=== PATIENT | female | born 2000 | race Caucasian/White ===

== ENCOUNTER → 2020-04-07 12:59 | Outpatient (BNVA) | payer MEDICAID, SELFPAY | PROVIDERS: Family Provider Family Medicine; PCP Family Medicine; Visit Provider Obstetrics & Gynecology | DX: O26.899 Other specified pregnancy related conditions, unspecified trimester (principal); Z67.91 Unspecified blood type, Rh negative; O26.843 Uterine size-date discrepancy, third trimester | CPT/HCPCS: 80053; 80307; 81000; 85025; 86803; 87081; 87340 ==

== ENCOUNTER → 2020-04-10 09:33 | Outpatient (BNVA) | payer MEDICAID, SELFPAY | PROVIDERS: Family Provider Family Medicine; PCP Family Medicine; Visit Provider Obstetrics & Gynecology | DX: O26.899 Other specified pregnancy related conditions, unspecified trimester (principal); Z67.91 Unspecified blood type, Rh negative; Z3A.00 Weeks of gestation of pregnancy not specified | CPT/HCPCS: 81000 ==

== ENCOUNTER → 2020-04-17 13:03 | Outpatient (BNVA) | payer MEDICAID, SELFPAY | PROVIDERS: Family Provider Family Medicine; PCP Family Medicine; Visit Provider Obstetrics & Gynecology | DX: O99.820 Streptococcus B carrier state complicating pregnancy (principal); O26.899 Other specified pregnancy related conditions, unspecified trimester; Z67.91 Unspecified blood type, Rh negative; Z3A.00 Weeks of gestation of pregnancy not specified | CPT/HCPCS: 81000 ==

== ENCOUNTER → 2020-04-26 09:52 | Outpatient (BNVA) | payer MEDICAID, SELFPAY | PROVIDERS: Family Provider Family Medicine; PCP Family Medicine; Visit Provider Obstetrics & Gynecology | DX: O99.820 Streptococcus B carrier state complicating pregnancy (principal); O26.899 Other specified pregnancy related conditions, unspecified trimester; Z67.91 Unspecified blood type, Rh negative; Z3A.00 Weeks of gestation of pregnancy not specified | CPT/HCPCS: 81000 ==

== ENCOUNTER 2020-04-27 09:11 | Inpatient (IN) | payer MEDICAID, SELFPAY ==
[2020-04-27] VITALS (77 sets, daily range): BP systolic 0–159; BP diastolic 0–106; PULSE 64–150; RESP 16–18; TEMP 36.6–37.4; O2SAT 89–99; BMI 21.7
[2020-04-27] MEDS: ampicillin 2,000 MG in sodium chloride 0.9% (plus) 50 ML 100 MG IV (10:24)
[2020-04-27] MEDS: lactated ringers 1,000 ML 999 ML IV ×2 (10:24→11:04)
[2020-04-27] MEDS: ondansetron 2 mg/ML SDV 2 mL 4 MG IVP (10:26)
--- NOTE | 2020-04-27 10:41 | ANES.PREANE2 ---
Pre-Anesthetic Assessment Pre-Anesthetic Assessment: Height/Weight: Height 1.68 m Pulse BP 73 135/85 04/27/20 10:32 04/27/20 10:32 Preop Diagnosis: IUP Proposed Procedure: epidural Familial anesthetic complications: None Was Beta Roxana taken within 24 hours: N/A Last intake: Burrito at 0700 Social: Social History: No alcohol and No tobacco Exam: Pre-Anes Outpt Exam: alert, oriented x 3, clear to auscultation bilaterally and regular rate & rhythm Airway: Cervical ROM: WNL MP: 2 Dentition: Full Anesthetic Plan: ASA status: 2 Anesthesia: Regional (specify below) Risk of > 500 ml blood loss (7ml/kg in children): No Meds/Allergies Current Medications: Current Medications Generic Name Dose Route Start Last Admin Trade Name Freq PRN Reason Stop Dose Admin Lactated Ringer's 1,000 mls @ 999 m ls/hr 04/27/20 09:53 04/27/20 10:24 Lactated Ringers IV 999 mls/hr .Q1H1M PRN Administration Per L&D Rescitabennie on Protocol Ondansetron HCl 4 mg 04/27/20 09:53 04/27/20 10:26 Zofran IVP 4 mg Q4H PRN Administration NAUSEA AND VOMITI NG PFSH Anesthesia PFSH: Medical History History of asthma Diagnosed as a child. Controlled with as needed albuterol inhaler. Denies any intubations or hospitalizations. Last had symptoms in 2014. Denies any inhaler use since then No pertinent past medical history Denies diabetes, seizures, hypertension, DVT/PE PMD: None Surgical History No pertinent past surgical history Family History Unknown No pertinent family history Denies any diabetes, hypertension, hypercholesterolemia, stroke, thyroid, heart disease, uterine, colon, ovarian, or breast cancer Social History Smoking and tobacco status: never smoked Alcohol intake: never Data Anesthesia CBC & Chem 7: 04/27/20 09:50 Cardiac Studies: No Data to Display
[2020-04-27 10:43] LABS: Basophils # 0.1 10^3/uL (0.0-0.1); Basophils % 0.7 %; Eosinophils # 0.1 10^3/uL (0.0-0.8); Eosinophils % 0.7 %; Hematocrit 41.2 % (37.0-47.0); Hemoglobin 13.8 g/dL (11.5-15.3); Lymphocytes # 2.1 10^3/uL (1.5-6.5); Lymphocytes % 12.4 %; Mean Corpuscular HGB Conc 33.5 g/dL (30.0-36.0); Mean Corpuscular Hemoglobin 30.5 pg (28.0-34.0); Mean Corpuscular Volume 91.2 fL (81-99); Mean Platelet Volume 11.6 fL (7.4-10.4); Monocytes # 1.2 10^3/uL (0.2-0.9); Monocytes % 7.3 %; Neutrophils # 13.15 10^3/uL (1.8-8.0); Neutrophils % 78.1 %; Nucleated Red Blood Cells % 0 %; Platelet Count 237 10^3/cmm (130-400); Red Blood Count 4.52 10^6/uL (4.1-5.3); Red Cell Distribution Width 13.8 % (12.1-15.1); White Blood Count 16.8 10^3/uL (4.5-13.0)
--- NOTE | 2020-04-27 11:18 | ANES.PROC ---
Anesthesia Procedures Procedure/Date: 04/27/20 Epidural: Time Out Performed: Yes Consents Signed: Procedure Consent Consent: requested by attending/covering physician, from patient, risks and benefits reviewed and patient agrees to proceed Lumbar Level: L3-L4 Epidural position: sitting Epidural procedure: sterile prep of area, 1% lidocaine to numb the area, 18 g needle, negative for paresthesia passed, neg for paresthesia, test dose given, 1.5% xylocaine 1:200k epi (3 ml), 0.2% Ropivacaine bolus ml (5 ml), placed PCEA, no systemic response, sterile dressing applied, L.U.D. no apparent complications and 0.2% Ropiavacaine @ mls/hr (13 ml) Additional Comments: CHARLIE at 5 cm, threaded to 11 cm. palpation of pt's spinous processes revealed them to be off-center and to the left
[2020-04-27] MEDS: lactated ringers 1,000 ML 125 ML (15:34)
[2020-04-27] MEDS: ampicillin 1,000 MG in sodium chloride 0.9% (plus) 50 ML 100 MG IV (15:34)
--- NOTE | 2020-04-27 16:23 | P.PCNOB_ITS ---
Delivery Note: Date of delivery: April 27, 2020 Procedure: spontaneous vaginal delivery Op report anesthesia: Epidural Delivering Physician: Keith Cortes MD Estimated blood loss (mL): 300 Delivery: The patient was noted to be complete and pushing, so was placed in the dorsal lithotomy position, prepped and draped in the usual sterile fashion for a vaginal delivery. Pt. Noted to have epidural anesthesia. At [time] the patient delivered a viable term male infant weighing 3110 g with scores of 8 and 9 at one and five minutes, respectively. The vertex was delivered spontaneously over intact perineum. The patient was asked to push and the head delivered spontaneously in the LOVELY position, over an intact perineum. A nuchal cord was checked and 1 noted, and relieved around head as necessary. The anterior shoulder delivered easily and the posterior shoulder followed. The remainder of the infant was easily delivered and the oropharynx and nasopharynx was bulb suctioned. Terminal meconium noted. The was noted to have spontaneous cry and spontaneous movement of all four extremities. The cord was clamped x 2 and cut and noted to have 2 arteries and one vein. The was passed to the mother's abdomenwhere nursing personnel were in attendance. Cord blood sample was then obtained. The placenta delivered intact spontaneously and the uterus was explored. 20 units of Pitocin was placed in the IV bag to firm the uterus. Examination of the cervix and vaginal vault did not reveal any lac erations. A vaginal pack was then placed. Examination of the perineum showed no lacerations noted. The vaginal pack was then removed. The patient tolerated this procedure well, and recovered in L&D w ith her infant [or note if infant taken to NICU]. All sponge and needle counts were correct. Coding Level of Care Code Acute Truck Driver Instructor for Nando Lovell
[2020-04-27] MEDS: docusate sodium 100 mg Capsule PO (18:42)
[2020-04-27] MEDS: ibuprofen 800 mg tablet PO (21:01)
[2020-04-28] VITALS: BP 133/88; PULSE 107; RESP 18; TEMP 36.8
[2020-04-28 02:00] VITALS: BP 122/84; PULSE 103; RESP 17
[2020-04-28 05:36] LABS: Hematocrit 37.8 % (37.0-47.0); Hemoglobin 12.7 g/dL (11.5-15.3); Mean Corpuscular HGB Conc 33.6 g/dL (30.0-36.0); Mean Corpuscular Hemoglobin 31.1 pg (28.0-34.0); Mean Corpuscular Volume 92.4 fL (81-99); Mean Platelet Volume 11.3 fL (7.4-10.4); Platelet Count 167 10^3/cmm (130-400); Red Blood Count 4.09 10^6/uL (4.1-5.3); Red Cell Distribution Width 14.1 % (12.1-15.1)
[2020-04-28 05:45] VITALS: BP 126/78; PULSE 83; RESP 18
[2020-04-28] MEDS: ibuprofen 800 mg tablet PO (10:40)
[2020-04-28] MEDS: prenatal vitamin Capsule 1 CAP PO (10:40)
[2020-04-28] MEDS: docusate sodium 100 mg Capsule PO (10:40)
[2020-04-28 11:55] VITALS: BP 113/74; PULSE 89; RESP 16; TEMP 36.4
--- NOTE | 2020-04-28 13:03 | P.DS_ITS ---
Discharge Providers [employer] Date of Admission: 04/27/20 09:11 Date of Discharge: 05/01/20 Attending Provider at Admission: Keith Cortes MD Attending Provider at Discharge: Keith Cortes MD Primary Care Provider: Khloe Rodriguez DO Diagnoses at Discharge Discharge Diagnosis (1) Term delivered: Status: Acute Reason for Visit Reason for Visit: Contractions Hospital Course Hospital Course: 19 year old with a LMP of 07/25/2019, EDC of 04/30/2020 based on LMP which places her at 39 5/7 weeks gestation came to labor and delivery at term with iyer complaining of contractions. She was found to be in active labor she was admitted to labor and delivery and she progressed to have a spontaneous vaginal delivery without complications. Overnight postop observation was uneventful. She is afebrile hemodynamically stable. Ambulating well without difficulty. Tolerating diet well. She is undecided which Method of contraception she wants to use at this time. Information Peripartum Data: Infant Delivery Method: Vaginal Physical Exam Narrative: EXAM NARRATIVE: GA; alert and oriented x 3 HEENT: normal Breasts: engorged Nipples - skin intact Lungs; clear to auscultation Heart: regular rhythm, no murmurs. Abd: Appropriately tender. BS+. Uterine fundus below umbilicus. No Fundal Tenderness. Perineum: normal lochia. Extremities: no edema, no cyanosis, no tenderness. Urinary Catheter Management^: Escobar: Cath Placed During This Visit: yes, but has since been removed by the nurse Reason for Continuing Indwelling Catheter: Decision to DC Catheter Urinary Catheter Date of Insertion: 04/27/20 Urinary Catheter Time of Insertion: 11:36 Date Urinary Catheter Removed: 04/27/20 Time Urinary Catheter Discontinued: 13:25 Discharge Data Data Completed and Pending: Labs from last 24 hours 04/28/20 05:20 WBC 17.0 H RBC 4.09 L Hgb 12.7 Hct 37.8 MCV 92.4 MCH 31.1 MCHC 33.6 RDW 14.1 Plt Count 167 MPV 11.3 H Vitals: Last Vital Signs Temp 98.3 F 04/28/20 00:00 Pulse 83 04/28/20 05:45 Resp 18 04/28/20 05:45 BP 126/78 04/28/20 05:45 Pulse Ox 98 04/27/20 19:15 Discharge Plan Discharge Patient Disposition: Home Condition: Stable Prescriptions: New ibuprofen 800 mg tablet 800 mg PO TID PRN (Reason: pain) Qty: 60 RF: 0 Iron (ferrous sulfate) 325 mg (65 mg iron) tablet 325 mg PO BID Qty: 60 RF: 0 acetaminophen 325 mg capsule 325 mg PO Q4H PRN (Reason: fever or pain) Qty: 60 RF: 0 Continued DHA 200 mg capsule PO RF: 0 Discharge Orders: Discharge Order (Routine); Ordered 04/28/20 Ordered By: Keith Cortes Referrals: Keith Cortes MD [Physician] - 06/19/20 9:15 am Discharge Diet: As Directed Discharge Activity: Increase activity as tolerated Patient Instructions: Iron Supplements (By mouth), Acetaminophen (By mouth), Ibuprofen (By mouth), Vitamins (By mouth), Vaginal Delivery (DC), Vaginal Delivery (GEN), OB Discharge Report, OB Vaginal Deliveries - [facility] Discharge Date/Time: 04/28/20 16:30 Discharge Attestations [employer] Time Spent in Discharge Care*: greater than 30 min Specific Discharge Activities: Specific discharge activities: educating patient and educating and/or supporting family/caregiver Time Spent in Smoking Cessation: Time spent discussing smoking cessation with patient: 3 to 10 minutes Coding Level of Care Code Acute Air Gun Operator for Chg Fwd Diagnoses Term delivered O80
[2020-04-28 16:08] VITALS: BP 129/84; PULSE 77; RESP 16; TEMP 36.9; O2SAT 97
== END 2020-04-28 16:30 | disposition home or self-care (01) | DRG 807 ==
LOC: OPOB 09:26 → OBGYN 09:26 → OPOB 10:01 → OBGYN 10:01
PROVIDERS: Admitting Provider Obstetrics & Gynecology; Family Provider Family Medicine; PCP Family Medicine; Visit Provider Obstetrics & Gynecology
DX: O69.81X0 Labor and delivery complicated by cord around neck, without compression, not applicable or unspecified (principal); Z37.0 Single live birth; Z3A.39 39 weeks gestation of pregnancy; O77.0 Labor and delivery complicated by meconium in amniotic fluid
CPT/HCPCS: 12345; 36415; 51702; 59025; 59409; 85025; 85027; 85460; 86850; 86870; 86900; 90384; 96375; 98960; J0290; J2405; J2795

== ENCOUNTER → 2020-06-21 09:14 | Outpatient (BNVA) | payer MEDICAID, SELFPAY | PROVIDERS: Family Provider Family Medicine; PCP Family Medicine; Visit Provider Obstetrics & Gynecology | DX: Z30.9 Encounter for contraceptive management, unspecified (principal) | CPT/HCPCS: 81025 ==

== ENCOUNTER 2021-05-24 16:08 | Emergency (ER) | payer MEDICAID, SELFPAY ==
[2021-05-24 16:21] VITALS: BP 113/78; PULSE 122; RESP 16; TEMP 37.1; O2SAT 98
--- NOTE | 2021-05-24 16:53 | XRR_ITS ---
PROCEDURE INFORMATION: Exam: XR Chest Exam date and time: 05/24/2021 4:53 PM Age: 20 years old Clinical indication: Cough and shortness of breath; Additional info: Cough, SOB TECHNIQUE: Imaging protocol: XR of the chest. Views: 1 view. COMPARISON: No relevant prior studies available. FINDINGS: Lungs: Mild atelectasis in the left base. The lungs are otherwise clear. Pleural spaces: Unremarkable. No pleural effusion. No pneumothorax. Heart/Mediastinum: Unremarkable. No cardiomegaly. Bones/joints: Thoracic scoliosis. XR/XR chest 1V portable [id number] IMPRESSION: No acute findings. Radiation Dose CTDIVOL = (mGy): DLP = (mGy-cm)
--- NOTE | 2021-05-24 19:25 | ED_ITS ---
HPI - COVID General: Chief Complaint: COVID symptoms Stated Complaint: 104.2 FEVER @HOME,BODY ACHES,H/A,THROAT PAIN Time Seen by Provider: 05/24/21 19:16 Source: patient Mode of arrival: ambulatory Limitations: no limitations Triage information: Has fever, cough or shortness of breath . No known COVID + exposure last 14 days History of Present Illness: HPI Narrative: 20-year-old female states that over the last 2 days she been having fevers body aches sore throat and a cough states her temp at home was 101 she is afebrile here. She denies any worsening improving factors she denies any neck pain she is got a mild headache denies any chest or abdominal pain or dysuria. COVID 19 common symptoms: positive fever(s), chills, non-productive cough, body aches and throat pain; negative headache(s), nausea, vomiting or diarrhea COVID 19 other sytmptoms: negative chest pain COVID Results: SARS-CoV-2 Antigen (Rapid) Negative (Negative) 05/24/21 19:25 05/24/21 SARS-CoV-2 RNA (RT-PCR) Pending 05/24/21 12:41 05/24/21 Review of Systems Const: Reports: fever(s), chills and body aches Eyes: Denies: blurry vision or eye discomfort ENMT: Reports: throat pain Card: Denies: chest pain Resp: Reports: non-productive cough GI: Denies: abdominal pain, nausea, vomiting or diarrhea : Denies: dysuria Musc: Denies: neck pain or back pain Skin/Breast: Denies: rash Neuro: Denies: headache(s) Psych: Denies: depression Venu/Lymph: Denies: easy bruising All/Imm: Denies: urticaria PFSH ED PFSH: Medical History (Updated 05/24/21 @ 21:12 by Sis Pope MD) History of asthma Diagnosed as a child. Controlled with as needed albuterol inhaler. Denies any intubations or hospitalizations. Last had symptoms in 2014. Denies any inhaler use since then No pertinent past medical history Denies diabetes, seizures, hypertension, DVT/PE PMD: None Surgical History No pertinent past surgical history Family History Unknown No pertinent family history Denies any diabetes, hypertension, hypercholesterolemia, stroke, thyroid, heart disease, uterine, colon, ovarian, or breast cancer Social History Smoking and tobacco status: never smoked Alcohol intake: never Physical Exam Const: COMMON NORMALS: no acute distress, patient oriented x3 and healthy appearing HENMT: COMMON NORMALS: normocephalic and atraumatic HEAD & SCALP: normocephalic and atraumatic Eye: COMMON NORMALS: Equal, round and reactive pupils present and EOMs intact bilaterally PUPIL: Yes Equal, round and reactive pupils present Neck/C-Spine: COMMON NORMALS: full ROM and supple Chest: COMMONS NORMALS: normal inspection of the chest and normal palpation of entire chest wall Resp: COMMON NORMALS: normal respiratory effort, No retractions, No use of accessory muscles and clear to auscultation bilaterally AUSCULTATION: clear to auscultation bilaterally Cardio: COMMON NORMALS: regular rate, regular rhythm and No murmurs present (Cardio) RATE: regular rate RHYTHM: regular rhythm GI: COMMON NORMALS: Normal to inspection, nondistended, normoactive bowel sounds present, Soft to palpation, non-tender and no masses PALPATION: Yes Soft to palpation Extremity: COMMON NORMALS: normal to inspection and full ROM Neuro: COMMON NORMALS: patient oriented x3, moves all extremities and no focal motor deficits Psych: COMMON NORMALS: mental status grossly normal, Normal thought process present and cooperative THOUGHT PROCESS: Normal thought process present Skin: COMMON NORMALS: no rashes or lesions noted and no wounds GENERAL SKIN EXAM: no rashes or lesions noted Course Vital Signs: Vital signs: Vital Signs Temperature 98.7 F 05/24/21 16:21 Pulse Rate 86 05/24/21 21:15 Respiratory Rate 16 05/24/21 21:15 Blood Pressure 108/78 05/24/21 21:15 Pulse Oximetry 99 05/24/21 21:15 MDM - COVID MDM Narrative: Medical decision making narrative: Patient presents here with acute cystitis likely causing her fever likely has a viral upper respiratory infection as well no signs of meningitis patient's vital signs of improved heart rates improved she stable for discharge will place her on Keflex she is return if worsening she understands agrees to plan. Lab Data: Labs: Lab Results 05/24/21 05/24/21 05/24/21 19:25 19:25 19:25 WBC 17.2 10^3/uL H 10 ^3/uL (4.5-13.0) RBC 4.81 10^6/uL 10^6 /uL (4.1-5.3) Hgb 14.4 g/dL g/dL (11.5-15.3) Hct 42.9 % % (37.0-47.0) MCV 89.2 fl fl (81-99) MCH 29.9 pg pg (28.0-34.0) MCHC 33.6 g/dL g/dL (30.0-36.0) RDW 12.4 % % (12.1-15.1) Plt Count 245 10^3/cmm 10^3 /cmm (130-400) MPV 10.5 fL H fL (7.4-10.4) Neut % (Auto) 73.3 % % Lymph % (Auto) 13.7 % % [place] % (Auto) 11.3 % % Eos % (Auto) 0.5 % % Baso % (Auto) 0.6 % % Neut # (Auto) 12.64 10^3/uL H 1 0^3/uL (1.8-8.0) Lymph # (Auto) 2.4 10^3/uL 10^3/ uL (1.5-6.5) [place] # (Auto) 2.0 10^3/uL H 10^ 3/uL (0.2-0.9) Eos # (Auto) 0.1 10^3/uL 10^3/ uL (0.0-0.8) Baso # (Auto) 0.1 10^3/uL 10^3/ uL (0.0-0.1) Nucleated RBC % (a uto) 0 % % Nucleated RBCs # 0.0 /100WBC /100W BC Sodium 135 mmol/L L mmol /L (136-145) Potassium 3.5 mmol/L mmol/L (3.5-5.1) Chloride 99 mmol/L mmol/L (98-107) Carbon Dioxide 26 mmol/L mmol/L (22-29) Anion Gap 13.5 (5-19) BUN 7 mg/dL mg/dL (6-20) Creatinine 0.7 mg/dL mg/dL (0.5-0.9) GFR Calculation 106.7 mL/min mL/m in (90-130) Glucose 91 mg/dL mg/dL (65-115) Calculated Osmolal ity 278 mOsm/kg L mOs m/kg (285-295) Lactate Calcium 9.0 mg/dL mg/dL (8.5-10.5) Total Bilirubin 0.6 mg/dL mg/dL (0.15-1.2) AST 11 U/L U/L (0-32) ALT 8 U/L U/L (0-33) Alkaline Phosphata se 144 IU/L H IU/L (35-105) Total Protein 8.0 g/dL g/dL (6.6-8.7) Albumin 4.3 g/dL g/dL (3.5-5.2) Globulin 3.7 g/dL g/dL (1.3-4.6) HCG, Qual Negative (Negative) Urine Color Urine Appearance Urine pH Ur Specific Gravit y Urine Protein Urine Glucose (UA) Urine Ketones Urine Blood Urine Nitrate Urine Bilirubin Urine Urobilinogen Ur Leukocyte Carla ase Urine RBC Urine WBC Ur Squamous Epith Cells Amorphous Sediment Urine Bacteria Urine Mucus Influenza Type A A g Influenza Type B A g SARS-CoV-2 Ag (Rap id) Group A Strep Rapi d 05/24/21 05/24/21 05/24/21 19:25 19:25 19:25 WBC RBC Hgb Hct MCV MCH MCHC RDW Plt Count MPV Neut % (Auto) Lymph % (Auto) [place] % (Auto) Eos % (Auto) Baso % (Auto) Neut # (Auto) Lymph # (Auto) [place] # (Auto) Eos # (Auto) Baso # (Auto) Nucleated RBC % (a uto) Nucleated RBCs # Sodium Potassium Chloride Carbon Dioxide Anion Gap BUN Creatinine GFR Calculation Glucose Calculated Osmolal ity Lactate Calcium Total Bilirubin AST ALT Alkaline Phosphata se Total Protein Albumin Globulin HCG, Qual Urine Color Yellow (Yellow) Urine Appearance Hazy A (CLEAR) Urine pH 5 (5-7) Ur Specific Gravit y 1.020 (1.005-1.030) Urine Protein 1+ H (Negative) Urine Glucose (UA) Norm (Normal) Urine Ketones Negative (Negative) Urine Blood Neg (Negative) Urine Nitrate Negative (Negative) Urine Bilirubin 1+ H (Negative) Urine Urobilinogen 1 mg/dL H mg/dL (Negative) Ur Leukocyte Carla ase 2+ H (Negative) Urine RBC Not Reportable Urine WBC 10-15 /hpf H /hpf (0-5) Ur Squamous Epith Cells 40-55 /hpf H /hpf (0-5) Amorphous Sediment Not Reportable Urine Bacteria 3+ /hpf H /hpf (NONE) Urine Mucus 1+ /hpf /hpf Influenza Type A A g Influenza Type B A g SARS-CoV-2 Ag (Rap id) Negative (Negative) Group A Strep Rapi d Negative (Negative) 05/24/21 05/24/21 19:25 19:25 WBC RBC Hgb Hct MCV MCH MCHC RDW Plt Count MPV Neut % (Auto) Lymph % (Auto) [place] % (Auto) Eos % (Auto) Baso % (Auto) Neut # (Auto) Lymph # (Auto) [place] # (Auto) Eos # (Auto) Baso # (Auto) Nucleated RBC % (a uto) Nucleated RBCs # Sodium Potassium Chloride Carbon Dioxide Anion Gap BUN Creatinine GFR Calculation Glucose Calculated Osmolal ity Lactate 0.7 mmol/L mmol/L (0.5-2.2) Calcium Total Bilirubin AST ALT Alkaline Phosphata se Total Protein Albumin Globulin HCG, Qual Urine Color Urine Appearance Urine pH Ur Specific Gravit y Urine Protein Urine Glucose (UA) Urine Ketones Urine Blood Urine Nitrate Urine Bilirubin Urine Urobilinogen Ur Leukocyte Carla ase Urine RBC Urine WBC Ur Squamous Epith Cells Amorphous Sediment Urine Bacteria Urine Mucus Influenza Type A A g Negative (Negative) Influenza Type B A g Negative (Negative) SARS-CoV-2 Ag (Rap id) Group A Strep Rapi d Imaging Data: CXR: Attestation: I personally reviewed and interpreted this imaging study as follows: Radiologist's impression: [address] [place] [address] XRay Report Signed Patient: Farnaz Diaz Unit #: [id number] : 2000 Age/Sex: 20 / F ADM Date: 05/24/21 Loc: ER Room/Bed: Attending Dr: Ordering Provider/Ordering MD: Barbara Jaimes Date of Service: 05/24/21 Procedure(s): XR chest 1V portable [id number] Accession Number(s): [id number] Report Number: [id number] PROCEDURE INFORMATION: Exam: XR Chest Exam date and time: 05/24/2021 4:53 PM Age: 20 years old Clinical indication: Cough and shortness of breath; Additional info: Cough, SOB TECHNIQUE: Imaging protocol: XR of the chest. Views: 1 view. COMPARISON: No relevant prior studies available. FINDINGS: Lungs: Mild atelectasis in the left base. The lungs are otherwise clear. Pleural spaces: Unremarkable. No pleural effusion. No pneumothorax. Heart/Mediastinum: Unremarkable. No cardiomegaly. Bones/joints: Thoracic scoliosis. XR/XR chest 1V portable [id number] IMPRESSION: No acute findings. Radiation Dose CTDIVOL = (mGy): DLP = (mGy-cm) Dictated By: Javier Yadav Signed By: Javier Yadav Signed Date/Time: 05/24/21 174 DD/ 1653 COVID Results: SARS-CoV-2 Antigen (Rapid) Negative (Negative) 05/24/21 19:25 05/24/21 SARS-CoV-2 RNA (RT-PCR) Pending 05/24/21 12:41 05/24/21 Discharge Plan Discharge Patient Disposition: Home Clinical Impression: Acute cystitis Qualifiers: Hematuria presence: without hematuria Qualified Code(s): N30.00 - Acute cystitis without hematuria Condition: Stable Prescriptions: New cephalexin 500 mg capsule 500 mg PO TID 7 Days Qty: 21 RF: 0 No Action Nexplanon 68 mg implant 1 implant subdermal .COMPLEX Qty: 1 RF: 0 ibuprofen 800 mg tablet 800 mg PO TID PRN (Reason: pain) Qty: 60 RF: 0 acetaminophen 325 mg capsule 325 mg PO Q4H PRN (Reason: fever or pain) Qty: 60 RF: 0 Discharge Orders: Discharge ED (Routine); Ordered 05/24/21 Ordered By: Sis Pope Discharge Diet: Advance as tolerated Discharge Activity: Resume usual activity Patient Instructions: Opioid Safety Coding Level of Care Code ED Umbrella Tipper Hand for Chg Fwd Exam Comprehensive
[2021-05-24] MEDS: acetaminophen 325 mg Tablet 650 MG PO (19:39)
[2021-05-24] MEDS: ketorolac 30 mg/mL INJ IVP (19:39)
[2021-05-24] MEDS: sodium chloride 0.9% 1,000 ML 999 ML IV (19:40)
[2021-05-24 19:42] LABS: Basophils # 0.1 10^3/uL (0.0-0.1); Basophils % 0.6 %; Eosinophils # 0.1 10^3/uL (0.0-0.8); Eosinophils % 0.5 %; Hematocrit 42.9 % (37.0-47.0); Hemoglobin 14.4 g/dL (11.5-15.3); Lymphocytes # 2.4 10^3/uL (1.5-6.5); Lymphocytes % 13.7 %; Mean Corpuscular HGB Conc 33.6 g/dL (30.0-36.0); Mean Corpuscular Hemoglobin 29.9 pg (28.0-34.0); Mean Corpuscular Volume 89.2 fl (81-99); Mean Platelet Volume 10.5 fL (7.4-10.4); Monocytes % 11.3 %; Neutrophils # 12.64 10^3/uL (1.8-8.0); Neutrophils % 73.3 %; Nucleated Red Blood Cells % 0 %; Platelet Count 245 10^3/cmm (130-400); Red Blood Count 4.81 10^6/uL (4.1-5.3); Red Cell Distribution Width 12.4 % (12.1-15.1); White Blood Count 17.2 10^3/uL (4.5-13.0)
[2021-05-24 19:44] VITALS: BP 99/71; PULSE 96; RESP 16; O2SAT 100
[2021-05-24 19:46] LABS: HCG Qualitative Urine. Negative (Negative)
[2021-05-24 19:54] LABS: Charge for UA Resulting for Rev
[2021-05-24 20:02] LABS: Alanine Aminotransferase 8 U/L (0-33); Albumin Level 4.3 g/dL (3.5-5.2); Alkaline Phosphatase 144 IU/L (35-105); Anion Gap 13.5 (5-19); Aspartate Amino Transferase 11 U/L (0-32); Blood Urea Nitrogen 7 mg/dL (6-20); Carbon Dioxide 26 mmol/L (22-29); Chloride 99 mmol/L (98-107); Globulin 3.7 g/dL (1.3-4.6); Glomerular Filtration Rate 106.7 mL/min (90-130); Glucose 91 mg/dL (65-115); Osmolality Calculated 278 mOsm/kg (285-295); Potassium 3.5 mmol/L (3.5-5.1); Sodium 135 mmol/L (136-145); Total Bilirubin 0.6 mg/dL (0.15-1.2)
[2021-05-24 20:03] LABS: Urine Appearance Hazy (CLEAR); Urine Color Yellow (Yellow); pH Urine 5 (5-7)
[2021-05-24 20:04] LABS: Add Urine Microscopic? YES; Bilirubin Urine 1+ (Negative); Blood Urine Neg (Negative); Glucose Urine UA Norm (Normal); Ketones Urine Negative (Negative); Leukocyte Esterase Urine 2+ (Negative); Nitrate Urine Negative (Negative); Protein Urine 1+ (Negative); Urobilinogen Urine 1 mg/dL (Negative)
[2021-05-24 20:05] LABS: Bacteria Urine 3+ /hpf; Mucus Urine 1+ /hpf; Squamous Epithelial Cell Urine 40-55 /hpf (0-5)
[2021-05-24 20:07] LABS: Add Urine Culture? No
[2021-05-24 20:14] LABS: Rapid Strep A Test Negative (Negative); SARS Covid-2 Antigen Negative (Negative)
[2021-05-24 20:15] LABS: Influenza A by IFA Negative (Negative); Influenza B by IFA Negative (Negative)
[2021-05-24] MEDS: cefTRIAXone 1,000 MG in sodium chloride 0.9% (plus) 50 ML 100 MG IV (20:28)
[2021-05-24 20:38] LABS: Lactate (Lactic Acid level) 0.7 mmol/L (0.5-2.2)
[2021-05-24 21:15] VITALS: BP 108/78; PULSE 86; RESP 16; O2SAT 99
== END 2021-05-24 21:18 | disposition home or self-care (01) ==
PROVIDERS: Physician Assistant; Emergency Provider Emergency Medicine
DX: N30.00 Acute cystitis without hematuria (principal)
CPT/HCPCS: 71045; 80053; 81001; 81003; 81025; 83605; 85025; 87081; 87400; 87426; 87635; 87804; 87880; 96365; 96375; 99284; J0696; J1885; J7030

== ENCOUNTER 2022-05-24 11:08 | Outpatient (CLI) | payer MEDICAID, SELFPAY ==
--- NOTE | 2022-05-24 11:48 | XR_ITS ---
WS: [id number] PA chest with left rib detail, 4 views, 05/24/2022 Clinical Data: RIB PAIN ON LEFT SIDE Comparison: Portable chest, 05/24/2021. Findings: The chest shows no acute cardiopulmonary disease. There is a dextroscoliosis of the lower thoracic sp ine. The ribs show no fractures or dislocations. No left pneumothorax or subcutaneous emphysema is se en. XR/XR ribs LT 2V* [id number] Impression: Negative chest with left rib detail.
== END 2022-05-24 11:09 | disposition home or self-care (01) ==
LOC: RAD 11:11
PROVIDERS: Visit Provider Nurse Practitioner Family
DX: R07.81 Pleurodynia (principal)
CPT/HCPCS: 71100

== ENCOUNTER 2022-06-03 07:59 | Outpatient (CLI) | payer MEDICAID, SELFPAY ==
--- NOTE | 2022-06-03 08:19 | US_ITS ---
WS: [email or web address] BILATERAL BREAST, complete. HISTORY: BREAST TENDERNESS, 21-year-old. COMPARISON: None available. TECHNIQUE: 2-D and Doppler. RIGHT breast: Hypoechoic slightly lobulated mass in the RIGHT breast at 10:00 2 cm from nipple measur es 2.0 x 1.5 x 1.0 cm. Mild peripheral increased vascularity. This is most likely and most typical fo r a benign fibroadenoma. No additional abnormalities within the RIGHT breast. LEFT breast: Small benign lymph node at 2:00, 4 cm from the nipple. No masses. US/US breast BI complete [id number] IMPRESSION: BI-RADS: 4-Suspicious Finding-Biopsy Should Be Considered FOLLOW-UP: Biopsy Recommended Biopsy recommended of the RIGHT breast mass at 10:00. This is most likely a jose ign fibroadenoma.
== END 2022-06-03 08:00 | disposition home or self-care (01) ==
LOC: RAD 08:01
PROVIDERS: PCP Family Medicine; Visit Provider Family Medicine
DX: N63.11 Unspecified lump in the right breast, upper outer quadrant (principal)
CPT/HCPCS: 76641

== ENCOUNTER 2022-06-11 07:01 | Outpatient (CLI) | payer MEDICAID, SELFPAY ==
--- NOTE | 2022-06-11 07:25 | US_ITS ---
WS: [id number] Complete ABDOMINAL ULTRASOUND HISTORY: ABD PAIN COMPARISON: 12/21/2010 Liver: 11.8 cm in length. Liver is normal size and echogenicity with no mass or intrahepatic dilatati on. Portal Vein: Normal hepatopetal flow with monophasic waveform. Gallbladder: Normally distended with no gallstones, wall thickening or pericholecystic fluid. Gallbladder wall thickness: 0.1 cm. Pancreas: Normal size and echogenicity. CBD: 0.4 cm. Right kidney: 9.4 cm x 3.8 cm x 3.2 cm. No mass, cortical thickening or hydronephrosis. Left kidney: 8.9 cm x 4.3 cm x 3.7 cm. No mass, cortical thickening or hydronephrosis. Spleen: Normal size and echogenicity. Abdominal aorta and IVC are within normal limits. No ascites. US/US abdomen complete* [id number] IMPRESSION: Normal complete abdomen ultrasound.
== END 2022-06-11 07:02 | disposition home or self-care (01) ==
PROVIDERS: PCP Family Medicine; Visit Provider Nurse Practitioner Family
DX: R10.9 Unspecified abdominal pain (principal)
CPT/HCPCS: 76700

== ENCOUNTER 2022-07-18 11:28 | Outpatient (CLI) | payer MEDICAID, SELFPAY ==
--- NOTE | 2022-07-18 11:38 | US_ITS ---
WS: [id number] ULTRASOUND-GUIDED RIGHT BREAST BIOPSY HISTORY: MASS OF UPPER INNER QUADRANT OF R BREAST COMPARISON: Ultrasound 06/03/2022 Procedure, risks and complications are explained to the patient. Medications are reviewed. Consent is obtained. The mass in the RIGHT breast is localized with ultrasound. Mass localizes to 10:00, 2 cm from the nip ple. Skin is cleansed with ChloraPrep and anesthetized with 1% buffered lidocaine. Small dermatome is made. Under sterile conditions mass is biopsied with a 14-gauge Achieve needle. Multiple core biopsi es are performed. Material placed in formalin and sent to pathology for review. No complications enco untered. Breast tissue marker (Bard ultrasound enhanced ribbon): Single. Patient left the radiology suite with no complications. Patient is instructed to return to [facility] or [facility] with any concerns. US/[place] [id number] IMPRESSION: 1. Uncomplicated core needle biopsy RIGHT breast mass at 10:00. PATHOLOGY: Fibroadenoma. No malignancy. RECOMMENDATION: Follow-up with primary care. Consider surgical excision.
== END 2022-07-18 11:29 | disposition home or self-care (01) ==
LOC: RAD 11:30
PROVIDERS: PCP Family Medicine; Visit Provider Nurse Practitioner Family
DX: N63.12 Unspecified lump in the right breast, upper inner quadrant (principal); D24.1 Benign neoplasm of right breast
CPT/HCPCS: 19083; 88305

== ENCOUNTER → 2022-09-11 16:10 | Outpatient (BNVA) | payer MEDICAID, SELFPAY | PROVIDERS: PCP Family Medicine; Visit Provider Nurse Practitioner Women's Health | DX: N89.8 Other specified noninflammatory disorders of vagina (principal) | CPT/HCPCS: 87491; 87591; 87661; 88175 ==

== ENCOUNTER → 2022-12-17 16:43 | Outpatient (BNVA) | payer MEDICAID, SELFPAY | PROVIDERS: PCP Family Medicine; Visit Provider Registered Nurse Neonatal Intensive Care | DX: R50.9 Fever, unspecified (principal); J03.80 Acute tonsillitis due to other specified organisms; B96.89 Other specified bacterial agents as the cause of diseases classified elsewhere | CPT/HCPCS: 87400 ==

== ENCOUNTER 2022-12-24 12:36 | Emergency (ER) | payer MEDICAID, SELFPAY ==
[2022-12-24 13:04] VITALS: BP 112/72; PULSE 80; RESP 14; TEMP 36.9; O2SAT 98; BMI 25.8
--- NOTE | 2022-12-24 13:23 | W.ED.EXTPRO ---
HPI - Extremity Problem General: Chief complaint: Extremity Injury, Upper Stated complaint: right upper arm and bilateral wrist pain Time Seen by Provider: 12/24/22 13:11 Source: patient Mode of arrival: ambulatory Limitations: no limitations History of Present Illness: Patient is a 22-year-old female presents to ED today with complaint of bilateral wrist pain and right shoulder pain. Patient states pain began yesterday while she was playing video games. She has not noticed any redness, warmth, or swelling to the joints. Denies other systemic symptoms. Of note it looks like patient was recently treated for a bacterial tonsillitis. No strep was obtained. She is currently taking amoxicillin. Patient has not had any fevers. MD Complaint: joint pain Onset (ago): hour(s) Pain Consistency: constant Location: left, right and upper extremity Radiation: none Relieving factors: nothing Exacerbating factors: range of motion Associated symptoms: Reports other (being treated for tonsillitis-states this is improving ); Deny chest pain, fever(s) or rash Review of Systems Const: Denies: fever(s), chills, body aches, fatigue or malaise ENMT: Denies: throat pain, odynophagia, ear or mastoid pain, nasal discharge, nasal congestion, post nasal drip or sinus pain Card: Denies: chest pain Resp: Denies: dyspnea GI: Denies: nausea or vomiting Musc: Reports: joint pain; Denies: neck pain, back pain, extremity pain, extremity swelling, joint swelling, joint redness, joint warmth or limited range of motion Skin/Breast: Denies: rash Neuro: Denies: headache(s), numbness in extremities, weakness in extremities or sensory changes PFS ED PFSH: Medical History History of asthma Diagnosed as a child. Controlled with as needed albuterol inhaler. Denies any intubations or hospitalizations. Last had symptoms in 2014. Denies any inhaler use since then No pertinent past medical history Denies diabetes, seizures, hypertension, DVT/PE PMD: None Surgical History No pertinent past surgical history Family History Unknown No pertinent family history Denies any diabetes, hypertension, hypercholesterolemia, stroke, thyroid, heart disease, uterine, colon, ovarian, or breast cancer Social History Smoking and tobacco status: never smoked Alcohol intake: never Substance/Drug Use: never Physical Exam Const: COMMON NORMALS: no acute distress, average body habitus, patient oriented x3, no limitations, healthy appearing, alert and well nourished GENERAL APPEARANCE: cooperative ORIENTATION/CONSCIOUSNESS: Yes awake, Yes oriented to person, Yes oriented to place and Yes oriented to time HENMT: FACE & SINUS: normal facial exam THROAT: posterior oropharynx normal, tonsils normal and uvula midline Neck/C-Spine: COMMON NORMALS: no lymphadenopathy and no meningeal signs Resp: COMMON NORMALS: normal respiratory effort and clear to auscultation bilaterally AUSCULTATION: clear to auscultation bilaterally Cardio: COMMON NORMALS: regular rate and regular rhythm RATE: regular rate RHYTHM: regular rhythm Extremity: COMMON NORMALS: normal to inspection, full ROM, no joint enlargement and no calf tenderness NARRATIVE EXTREMITY EXAM: patient is using upper extremities normally as she is chasing/lifting her toddler that accompanies her; I do not appreciate any swelling, redness, warmth, decreased range of motion to any portion of her extremities GENERAL: Yes normal exam except as noted Neuro: VIRY COMA SCALE: document GCS findings Viry coma scale eye opening: Spontaneous [place] coma scale verbal response: Orientated Viry coma scale motor response: Obey commands Viry coma scale total score: 15 COMMON NORMALS: patient oriented x3, moves all extremities, no focal motor deficits and no sensory deficits noted SENSORIUM/ORIENTATION: Yes alert, Yes oriented to person, Yes oriented to place and Yes oriented to time MENINGEAL SIGNS: Yes no meningeal signs Skin: COMMON NORMALS: no rashes or lesions noted GENERAL SKIN EXAM: no rashes or lesions noted Course Vital Signs: Vital signs: Vital Signs Temperature 98.5 F 12/24/22 13:04 Pulse Rate 80 12/24/22 13:04 Respiratory Rate 14 12/24/22 13:04 Blood Pressure 112/72 12/24/22 13:04 Pulse Oximetry 98 12/24/22 13:04 Oxygen Delivery Me thod Room Air 12/24/22 13:04 MDM - Extremity (Nontraumatic) Medical Decision Making Certainly symptoms could be secondary to over usage as symptoms started while she was playing video games. Other DDx includes tendinitis as well as a poststreptococcal arthritis seeing how she was recently treated for tonsillitis-no strep was obtained but she is currently on amoxicillin. Discussed how treatment is NSAIDs at this time. If symptoms do not improve she can follow-up with primary care. Return ED precautions given. Discharge Plan Discharge Patient Disposition: Home Clinical Impression: Joint pain Qualifiers: Joint pain location: wrist Laterality: bilateral Qualified Code(s): M25.531 - Pain in right wrist Condition: Stable Prescriptions: No Action amoxicillin 500 mg tablet 500 mg PO BID 10 Days Qty: 20 0RF Nexplanon 68 mg implant 1 implant subdermal .COMPLEX Qty: 1 0RF Rx Instructions: 1 implant subdermal Placed 06/21/2020; acetaminophen 325 mg capsule 325 mg PO Q4H PRN (Reason: fever or pain) Qty: 60 0RF Discharge Orders: Discharge ED (Routine); Ordered 12/24/22 Ordered By: Barbara Jaimes Referrals: Ramila Hall MD [Primary Care Provider] - Activity Restrictions/Additional Instructions: As discussed I would like you to start taking either 600 mg of ibuprofen every 6-8 hours or 500 mg of naproxen every 12 hours for your joint pain. You may also try ice and heat. Continue your current antibiotic course until finished. If joint pain persist past 1 to 2 weeks please follow-up with your primary care provider. He may return to the emergency department for any red, swollen, warm to the touch joints, fevers, or any other concerns you may have. I hope you begin to feel better soon. Coding Level of Care Code ED Nylon Machine Operator for Nando Lovell
== END 2022-12-24 13:48 | disposition home or self-care (01) ==
PROVIDERS: Emergency Provider Physician Assistant; PCP Family Medicine
DX: M25.532 Pain in left wrist (principal); M25.531 Pain in right wrist
CPT/HCPCS: 99284

== ENCOUNTER 2023-01-02 21:29 | Emergency (ER) | payer MEDICAID, SELFPAY ==
[2023-01-02 21:34] VITALS: BP 116/80; PULSE 85; RESP 16; TEMP 36.8; O2SAT 99
--- NOTE | 2023-01-02 22:26 | W.ED.EXTPRO ---
HPI - Extremity Problem General: Chief complaint: Extremity Problem,Nontraumatic Stated complaint: wrest pain Time Seen by Provider: 01/02/23 21:57 History of Present Illness: PatientPatient reports that she has had bilateral upper extremity pain and wrist pain x1 week. She does not know of any injury that is causes she just woke up 1 morning and was hurting. She does not work she does not have any repetitive neck activities or hobbies. She does not know of any family history of rheumatoid arthritis. She denies any fever, chills, nausea, vomiting. She denies stating that she has the Implanon in her arm for some time now. She denies any known tick bites. She reports movement makes the pain worse. Associated symptoms: Deny chest pain or fever(s) Review of Systems Const: Denies: fever(s), chills or body aches Eyes: Denies: change in vision or blurry vision ENMT: Denies: throat pain Card: Denies: chest pain, palpitations, irregular heart rhythm, lightheadedness or syncope Resp: Denies: dyspnea, productive cough or non-productive cough GI: Denies: abdominal pain, nausea or vomiting : Denies: flank pain, difficulty voiding, dysuria, urinary frequency, urinary urgency or urinary hesitancy Musc: Reports: extremity pain, joint pain and limited range of motion Neuro: Denies: headache(s), numbness in extremities or weakness in extremities PFS ED PFSH: Medical History (Updated 01/02/23 @ 23:54 by CHICA Verdin) History of asthma Diagnosed as a child. Controlled with as needed albuterol inhaler. Denies any intubations or hospitalizations. Last had symptoms in 2014. Denies any inhaler use since then No pertinent past medical history Denies diabetes, seizures, hypertension, DVT/PE PMD: None Surgical History No pertinent past surgical history Family History Unknown No pertinent family history Denies any diabetes, hypertension, hypercholesterolemia, stroke, thyroid, heart disease, uterine, colon, ovarian, or breast cancer Social History Smoking and tobacco status: never smoked Alcohol intake: never Substance/Drug Use: never Physical Exam Const: COMMON NORMALS: no acute distress, patient oriented x3 and alert Neck/C-Spine: COMMON NORMALS: no JVD Resp: COMMON NORMALS: normal respiratory effort, No use of accessory muscles and clear to auscultation bilaterally AUSCULTATION: clear to auscultation bilaterally Cardio: COMMON NORMALS: no JVD, regular rate, regular rhythm, S1 normal heart sound present and S2 normal heart sound present RATE: regular rate RHYTHM: regular rhythm HEART SOUNDS: S1 normal heart sound present and S2 normal heart sound present Extremity: NARRATIVE EXTREMITY EXAM: Patient with guarded movements of upper extremities. She cringes when I touch her forearms and her wrist and her shoulders bilateral. No obvious bony deformity or soft tissue deformity appreciated. Patient does have full range of motion although grimaces with any movement of the wrist worse on the left. CSM within normal limits to distal fingers bilateral hands. No significant joint swelling or erythema appreciated. Neuro: COMMON NORMALS: patient oriented x3 SENSORIUM/ORIENTATION: Yes alert Course Vital Signs: Vital signs: Vital Signs Temperature 98.2 F 01/02/23 21:34 Pulse Rate 85 01/03/23 00:03 Respiratory Rate 13 01/03/23 00:03 Blood Pressure 116/80 01/02/23 21:34 Pulse Oximetry 98 01/03/23 00:03 Oxygen Delivery Me thod Room Air 01/02/23 21:34 MDM - Extremity (Nontraumatic) Medical Decision Making Consider inflammatory response, tickborne illness, infection, arthritis, strain Patient denies any recent tick bites, white blood cell count is within normal limits, lactic acid within normal limits. No significant electrolyte abnormalities. Toradol injection given x1 dose in here tonight. Patient reports improvement in pain with Toradol injection. Have patient follow-up with primary care provider for continued evaluation and management. Patient discharged home in stable condition. Return to the ER as needed for new or worsening symptoms Lab Data 01/02/23 23:14 01/02/23 23:14 Laboratory Results WBC 9.2 10^3/uL (4.0-10.0) 01/02/23 23:14 RBC 4.08 10^6/uL (4.1-5.3) L 01/02/23 23:14 Hgb 12.2 g/dL (11.5-15.3) 01/02/23 23:14 Hct 37.1 % (37.0-47.0) 01/02/23 23:14 MCV 90.9 fl (81-99) 01/02/23 23:14 MCH 29.9 pg (28.0-34.0) 01/02/23 23:14 MCHC 32.9 g/dL (30.0-36.0) 01/02/23 23:14 RDW 12.4 % (12.1-15.1) 01/02/23 23:14 Plt Count 366 10^3/cmm (130-400) 01/02/23 23:14 MPV 10.1 fL (7.4-10.4) 01/02/23 23:14 Neut % (Auto) 50.1 % 01/02/23 23:14 Lymph % (Auto) 38.9 % 01/02/23 23:14 Cobb % (Auto) 7.9 % 01/02/23 23:14 Eos % (Auto) 1.9 % 01/02/23 23:14 Baso % (Auto) 1.0 % 01/02/23 23:14 Neut # (Auto) 4.60 10^3/uL (1.8-7.7) 01/02/23 23:14 Lymph # (Auto) 3.6 10^3/uL (0.8-4.8) 01/02/23 23:14 Cobb # (Auto) 0.7 10^3/uL (0.2-0.9) 01/02/23 23:14 Eos # (Auto) 0.2 10^3/uL (0.0-0.8) 01/02/23 23:14 Baso # (Auto) 0.1 10^3/uL (0.0-0.1) 01/02/23 23:14 Nucleated RBC % (auto) 0 % 01/02/23 23:14 Nucleated RBCs # 0.0 /100WBC 01/02/23 23:14 Sodium 138 mmol/L (136-145) 01/02/23 23:14 Potassium 3.8 mmol/L (3.5-5.1) 01/02/23 23:14 Chloride 102 mmol/L (98-107) 01/02/23 23:14 Carbon Dioxide 26 mmol/L (22-29) 01/02/23 23:14 Anion Gap 13.8 (5-19) 01/02/23 23:14 BUN 12 mg/dL (6-20) 01/02/23 23:14 Creatinine 0.7 mg/dL (0.5-0.9) 01/02/23 23:14 GFR Calculation 104.6 mL/min (90-130) 01/02/23 23:14 Glucose 90 mg/dL (65-115) 01/02/23 23:14 Calculated Osmolality 285 mOsm/kg (285-295) 01/02/23 23:14 Lactic Acid 0.9 mmol/L (0.5-2.2) 01/02/23 23:14 Calcium 9.3 mg/dL (8.5-10.5) 01/02/23 23:14 Total Bilirubin 0.2 mg/dL (0.15-1.2) 01/02/23 23:14 AST 12 U/L (0-32) 01/02/23 23:14 ALT 10 U/L (0-33) 01/02/23 23:14 Alkaline Phosphatase 107 U/L (35-105) H 01/02/23 23:14 Total Protein 7.9 g/dL (6.6-8.7) 01/02/23 23:14 Albumin 4.0 g/dL (3.5-5.2) 01/02/23 23:14 Globulin 3.9 g/dL (1.3-4.6) 01/02/23 23:14 Discharge Plan Discharge Patient Disposition: Home Clinical Impression: Upper extremity pain Qualifiers: Laterality: bilateral Qualified Code(s): M79.601 - Pain in right arm Condition: Stable Prescriptions: No Action amoxicillin 500 mg tablet 500 mg PO BID 10 Days Qty: 20 0RF Nexplanon 68 mg implant 1 implant subdermal .COMPLEX Qty: 1 0RF Rx Instructions: 1 implant subdermal Placed 06/21/2020; acetaminophen 325 mg capsule 325 mg PO Q4H PRN (Reason: fever or pain) Qty: 60 0RF Discharge Orders: Discharge ED (Routine); Ordered 01/02/23 Ordered By: Licha Ryan Discharge Diet: Usual diet Discharge Activity: Increase activity as tolerated Activity Restrictions/Additional Instructions: Your labs did not show any evidence of acute infection or inflammatory process today. I recommend continued follow-up with primary care provider for ongoing evaluation and management of your upper extremity pain. Return to the ER as needed for new or worsening symptoms Coding Level of Care Code ED Automotive Porter for Nando Lovell
[2023-01-02] MEDS: ketorolac 60 mg/2 mL INJ IM (23:19)
[2023-01-02 23:34] LABS: Basophils # 0.1 10^3/uL (0.0-0.1); Eosinophils # 0.2 10^3/uL (0.0-0.8); Eosinophils % 1.9 %; Hematocrit 37.1 % (37.0-47.0); Hemoglobin 12.2 g/dL (11.5-15.3); Lymphocytes # 3.6 10^3/uL (0.8-4.8); Lymphocytes % 38.9 %; Mean Corpuscular HGB Conc 32.9 g/dL (30.0-36.0); Mean Corpuscular Hemoglobin 29.9 pg (28.0-34.0); Mean Corpuscular Volume 90.9 fl (81-99); Mean Platelet Volume 10.1 fL (7.4-10.4); Monocytes # 0.7 10^3/uL (0.2-0.9); Monocytes % 7.9 %; Neutrophils % 50.1 %; Nucleated Red Blood Cells % 0 %; Platelet Count 366 10^3/cmm (130-400); Red Blood Count 4.08 10^6/uL (4.1-5.3); Red Cell Distribution Width 12.4 % (12.1-15.1); White Blood Count 9.2 10^3/uL (4.0-10.0)
[2023-01-02 23:43] LABS: Alanine Aminotransferase 10 U/L (0-33); Alkaline Phosphatase 107 U/L (35-105); Anion Gap 13.8 (5-19); Aspartate Amino Transferase 12 U/L (0-32); Blood Urea Nitrogen 12 mg/dL (6-20); Calcium 9.3 mg/dL (8.5-10.5); Carbon Dioxide 26 mmol/L (22-29); Chloride 102 mmol/L (98-107); Globulin 3.9 g/dL (1.3-4.6); Glomerular Filtration Rate 104.6 mL/min (90-130); Glucose 90 mg/dL (65-115); Osmolality Calculated 285 mOsm/kg (285-295); Potassium 3.8 mmol/L (3.5-5.1); Sodium 138 mmol/L (136-145); Total Bilirubin 0.2 mg/dL (0.15-1.2); Total Protein 7.9 g/dL (6.6-8.7)
[2023-01-02 23:44] LABS: Lactic Sepsis W/Reflex 0.9 mmol/L (0.5-2.2)
[2023-01-03 00:03] VITALS: PULSE 85; RESP 13; O2SAT 98
--- NOTE | 2023-01-03 13:14 | DCPLANNER ---
TCM called patient due to no primary care physician - no answer at this time.
== END 2023-01-03 00:04 | disposition home or self-care (01) ==
PROVIDERS: Emergency Provider Nurse Practitioner Family
DX: M79.601 Pain in right arm (principal)
CPT/HCPCS: 80053; 83605; 85025; 96372; 99284; J1885

== ENCOUNTER → 2023-01-06 18:07 | Outpatient (BNVA) | payer MEDICAID, SELFPAY | PROVIDERS: Visit Provider Emergency Medicine | DX: J02.9 Acute pharyngitis, unspecified (principal); R52 Pain, unspecified | CPT/HCPCS: 87071; 87880 ==

== ENCOUNTER 2023-03-05 11:33 | Emergency (ER) | payer MEDICAID, SELFPAY ==
[2023-03-05 12:03] VITALS: BP 112/73; PULSE 84; RESP 16; TEMP 36.7; O2SAT 100; BMI 22.6
--- NOTE | 2023-03-05 13:05 | PC.PHAR ---
[facility]ed [facility] at 1:[facility] pm for med list
--- NOTE | 2023-03-05 13:59 | ED_ITS ---
HPI - Skin/Abscess/Foreign Bdy General: Chief complaint: Allergic Reaction Stated complaint: allergic reaction Time Seen by Provider: 03/05/23 12:46 Source: patient Mode of arrival: ambulatory Limitations: no limitations History of Present Illness: Patient is a 22-year-old female who presents to ED today with a concern of poison alcides. She states she has multiple spots to her bilateral upper and lower extremity that are pruritic and feels like poison alcides she has had previously. She is requesting a steroid shot. She has been outside working in the [employer]. MD complaint: rash Onset (ago): day(s) Tetanus up to date: yes Location: generalized Severity: mild Quality: pruritic Relieving factors: none Exacerbating factors: none Context: none Associated symptoms: Reports no associated symptoms; Deny chills or fever(s) Treatments prior to arrival: none Review of Systems Const: Denies: fever(s), chills, body aches, fatigue or malaise Eyes: Denies: change in vision, blurry vision or eye discomfort ENMT: Denies: throat pain or odynophagia Card: Denies: chest pain Resp: Denies: dyspnea GI: Denies: abdominal pain Musc: Denies: neck pain, back pain, extremity pain or joint pain Skin/Breast: Reports: rash and pruritus Neuro: Denies: headache(s), numbness in extremities, weakness in extremities, sensory changes or dizziness PFS ED PFSH: Medical History History of asthma Diagnosed as a child. Controlled with as needed albuterol inhaler. Denies any intubations or hospitalizations. Last had symptoms in 2014. Denies any inhaler use since then No pertinent past medical history Denies diabetes, seizures, hypertension, DVT/PE PMD: None Surgical History No pertinent past surgical history Family History Unknown No pertinent family history Denies any diabetes, hypertension, hypercholesterolemia, stroke, thyroid, heart disease, uterine, colon, ovarian, or breast cancer Social History Smoking and tobacco status: never smoked Alcohol intake: never Substance/Drug Use: never Physical Exam Const: COMMON NORMALS: no acute distress, average body habitus, patient oriented x3, no limitations, healthy appearing, alert and well nourished Extremity: COMMON NORMALS: normal to inspection GENERAL: Yes normal exam except as noted Neuro: COMMON NORMALS: patient oriented x3 SENSORIUM/ORIENTATION: Yes alert Skin: NARRATIVE SKIN EXAM: Patient has multiple 1 to 2 mm erythematous papules/vesicles to bilateral upper and lower extremities consistent with insect bites Course Vital Signs: Vital signs: Vital Signs Temperature 98.1 F 03/05/23 12:03 Pulse Rate 84 03/05/23 12:03 Respiratory Rate 16 03/05/23 12:03 Blood Pressure 112/73 03/05/23 12:03 Pulse Oximetry 100 03/05/23 12:03 Oxygen Delivery Me thod Room Air 03/05/23 12:03 MDM - Skin/Abscess/Foreign Bdy Medicial Decision Making Patient's lesions are consistent with insect bites. She seems to be offended that I do not share her concern for contact/plant dermatitis. Ultimately we discussed how treatment would be the same in regards to oral and topical Benadryl to help with the itching and topical hydrocortisone cream. Patient is stable for discharge. Discharge Plan Discharge Patient Disposition: Home Clinical Impression: Multiple insect bites Condition: Stable Prescriptions: No Action ibuprofen 800 mg tablet 800 mg PO Q8H PRN (Reason: pain) Qty: 60 0RF Discharge Orders: Discharge ED (Routine); Ordered 03/05/23 Ordered By: Barbara Jaimes Activity Restrictions/Additional Instructions: As we discussed I believe your skin lesions most likely are consistent with insect bites and not a contact dermatitis from plants. Ultimately treatment is essentially the same with [id number] antihistamines such as Benadryl/steroids. These are available in oral and topical formulations. You may also apply topical hydrocortisone cream. Coding Level of Care Code ED Manager Civil for Nando Lovell
[2023-03-05] MEDS: hydrocortisone 100 mg/2 mL SDV 50 MG IM (14:21)
--- NOTE | 2023-03-07 12:16 | DCPLANNER ---
delicatessen store manager called patient due to no primary care physician - no answer at this time.
== END 2023-03-05 14:26 | disposition home or self-care (01) ==
PROVIDERS: Emergency Provider Physician Assistant
DX: T14.8XXA Other injury of unspecified body region, initial encounter (principal); W57.XXXA Bitten or stung by nonvenomous insect and other nonvenomous arthropods, initial encounter
CPT/HCPCS: 96372; 99284; J1720

== ENCOUNTER → 2023-07-03 15:37 | Outpatient (BNVA) | payer MEDICAID, SELFPAY | PROVIDERS: Visit Provider Nurse Practitioner Women's Health | DX: Z30.9 Encounter for contraceptive management, unspecified (principal) | CPT/HCPCS: 81025 ==

== ENCOUNTER 2025-02-17 10:00 | Outpatient (CLI) | payer MEDICAID, SELFPAY ==
--- NOTE | 2025-02-17 10:07 | US_ITS ---
WS: [id number] ULTRASOUND BREAST BILATERAL TECHNIQUE: Ultrasound bilateral breast focused area of concern. CLINICAL INFORMATION: BREAST TENDERNESS IN FEMALE/FIBROADENOMA OF R BREAST COMPARISON: 2021 FINDINGS: Ultrasound performed in the areas of concern. RIGHT BREAST: Previously biopsied fibroadenoma RIGHT breast is stable in appearance today measuring 1.6 x 1.5 x 1.2 cm at the 10 o'clock position 2 cm from the nipple. Incidental ductal ectasia retroareolar RIGHT breast. Ultrasound RIGHT axillary of concern shows a small very superficial ovoid nodule measuring 4 x 3 mm with some internal debris likely a complex cyst or sebaceous cyst. This has a benign appearance. LEFT BREAST: Incidental ductal ectasia retroareolar LEFT breast. Normal- appearing LEFT axillary lymph nodes. US/US breast BI complete [id number] IMPRESSION: BI-RADS 2 benign Recommend annual screening mammography age 40
== END 2025-02-17 10:01 | disposition home or self-care (01) ==
LOC: RAD 10:01
PROVIDERS: Visit Provider Nurse Practitioner Family
DX: N60.21 Fibroadenosis of right breast (principal); N63.31 Unspecified lump in axillary tail of the right breast; N60.41 Mammary duct ectasia of right breast; N60.42 Mammary duct ectasia of left breast; N64.4 Mastodynia
CPT/HCPCS: 76641

== ENCOUNTER 2025-05-08 19:14 | Emergency (ER) | payer MEDICAID, SELFPAY ==
--- OUTSIDE RECORDS SUMMARY | 2025-05-08 19:22 | XMS_ITS | Encounter Summary ---
Author Organization [facility] Address [address] [place] [address] Care Team Providers Care Jewelry Engraver Name Role Phone Khloe Rodriguez DO Primary Care Provider [phone] Encounter Details Date Type Department Care Team (Latest Contact Info) Description 09/03/2004 Outpatient Historical [facility] [address] [place] [address] Zbigniew Rose MD [address] [place] [id number] UNSPECIFIED VIRAL INFECTION (Primary Dx) Social History Tobacco Use Types Packs/Day Years Used Date Smoking Tobacco: Never Assessed Comments Unknown Sex and Gender Information Value Date Recorded Sex Assigned at Not on file Legal Sex Female 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
--- OUTSIDE RECORDS SUMMARY | 2025-05-08 19:22 | XMS_ITS | Encounter Summary ---
Author Organization [facility] Address [address] [place] [address] Care Team Providers Care Boot Liner Maker Name Role Phone Khloe Rodriguez DO Primary Care Provider [phone]- [phone] Encounter Details Date Type Department Care Team (Latest Contact Info) Description 10/30/2004 Outpatient Historical [facility] [address] [place] [address] Zbigniew Rose MD [address] [place] [phone] DERMATITIS NOS (Primary Dx) Social History Tobacco Use Types Packs/Day Years Used Date Smoking Tobacco: Never Assessed Comments Unknown Sex and Gender Information Value Date Recorded Sex Assigned at Not on file 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
--- OUTSIDE RECORDS SUMMARY | 2025-05-08 19:22 | XMS_ITS | Encounter Summary ---
Author Organization [facility] Address [address] 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
--- OUTSIDE RECORDS SUMMARY | 2025-05-08 19:22 | XMS_ITS | Encounter Summary ---
Author Organization [facility] Address [address] [place] [address] Care Team Providers Care Manager Estate Name Role Phone Khloe Rodriguez DO Primary Care Provider [phone]- [phone] Encounter Details Date Type Department Care Team (Latest Contact Info) Description 04/30/2005 Outpatient Historical [facility] [place] [address] [place] [address] Zbigniew Rose MD [address] [place] [phone] Routine child health exam (Primary Dx) Social History Tobacco Use Types Packs/Day Years Used Date Smoking Tobacco: Never Assessed Comments Unknown Sex and Gender Information Value Date Recorded Sex Assigned at Not on file Legal Sex Female 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
--- OUTSIDE RECORDS SUMMARY | 2025-05-08 19:22 | XMS_ITS | Clinical Summary ---
Author Organization [facility] Address [address] [place] [address] Care Team Providers Care Newspaper Managing Editor Name Role Phone Khloe Rodriguez Primary Care Provider +1- [phone] Allergies No known active allergies Medications Vit 25-Thwm-ZN-DSS (ADVANCED ) 90-1-50 mg Tablet Take 1 Tablet by mouth daily. Active Active Problems Problem Noted Date Diagnosed Date Encounter for supervision of normal first in third trimester 02/15/2020 Asthma, mild intermittent 09/26/2009 Immunizations Immunization Administration Dates Next Due (INFANRIX)(6 WKS-6 YRS) DIPT HERIA, TETANUS TOXOIDS, AND ACCELLULAR PERTUSSIS VACCINE (DTAP), 0.5 ML IM 02/11/2004,09/15/2001,03/10/2001,01/08,2000 (IPOL)(6 WKS AND UP) POLIOVI SHARIFA VACCINE, INACTIVATED (IPV), 3 DOSE, SUBCUT OR IM 02/10/2006,09/15/2001,01/08/2001,11/10 (M-M-R II/PRIORIX)(12 MO UP) MEASLES, MUMPS AND RUBELLA VIRUS VACCINE, 0.5 ML IM/SUBCUT 02/13/2004,2000 (PREVNAR 13)(6 WKS UP) PNEUM OCOCCAL CONJUGATE (PCV13) 0.5 ML, IM 09/27/2002,03/10/2001,02/09/2001,01/08 HIB, Unspecified Formulation 09/27/2002, 09/27/2002,01/08/2001,11/10 HPV Vaccine 3 Dose IM [facility] 09/29/2015,04/12/2014, 02/04/2014 Influenza Vaccine Quad Split 3+ Yrs IM [facility] 05/10/2016,06/10/2014 Meningococcal A Conjugate Va ccine IM [facility] 02/04/2014 Meningococcal A Conjugate Vaccine IM 03/03/2018 Tdap Vaccine > 7 Yo IM [facility] 02/04/2014 Family History Relation Name Status Comments Father Alive Mother Alive Social History Tobacco Use Types Packs/Day Years Used Date Smoking Tobacco: Never Smokeless Tobacco: Never Alcohol Use Standard Drinks/Week Comments Not Currently 0 (1 standard drink = 0.6 oz pur e alcohol) Comments No Sex and Gender Information Value Date Recorded Sex Assigned at Not on file 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 Gender Identity Not on file Sexual Orientation Not on file Occupation Industry Job Start Date Job End Date Student Not on file Not on file Not on file Last Filed Vital Signs Vital Sign Reading Time Taken Comments Blood Pressure 115/60 03/20/2020 11:10 AM CDT Pulse 113 03/20/2020 11:10 AM CDT Temperature 36.7 C (98 F) 03/20/2020 11:10 AM CDT Respiratory Rate 17 10/03/2019 7:58 PM CDT Oxygen Saturation 98% 03/20/2020 11:10 AM CDT Inhaled Oxygen Concentration - - Weight 59.4 kg (131 lb) 03/20/2020 11:10 AM CDT Height 162.6 cm (5' 4 ) 03/20/2020 11:10 AM CDT Body Mass Index 22.49 03/20/2020 11:10 AM CDT Plan of Treatment Health Maintenance Due Date Last Done Comments HEPATITIS B VACCINES (1 of 3 - 19+ 3-dose series) 2019 Preventative Visit-Managed Medicaid 2019 2000 CERVICAL CANCER SCREENING 2021 HPV/Cotest (21-29) 2021 PAP SMEAR 2021 DTAP/TDAP/TD VACCINES (6 - T d or Tdap) 02/05/2024 02/04/2014, 02/11/2004, 09/15/2001, Additional history exists INFLUENZA VACCINE (#1) 2025 05/10/2016, 2013 HPV VACCINES Completed 09/29/2015, 03/22, 02/04/2014 CHLAMYDIA SCREENING (ANNUAL) 11-24 YEARS Discontinued 11/15/2019, 05/27/2018, 09/29/2015 Procedures Procedure Name Priority Date/Time Associated Diagnosis Comments GC/CHLAMYDIA, GENITAL Routine 11/15/2019 from Last 3 Months or Most Recently Relevant to Health Maintenance Results * GC/CHLAMYDIA, GENITAL (11/15/2019) ABSTRACTED CHLAMYDIA DNA AMP negative [facility] [place] ABSTRACTED GC DNA AMPLIFICATION negative [facility] [place] Genital SWAB OF ENDOCERVIX / Unknown us Historical Provider MICRO - GEN ORDERABLES COM F inal Result [facility] CL[facility]# [id number] [address] [place] [address] [address] [place] [address] from Last 3 Months or Most Recently Relevant to Health Maintenance Insurance [facility] RX INFOCROSSING Medicaid Care Teams Newspaper Managing Editor Relationship Specialty Start Date End Date Khloe Rodriguez DO [address] [facility] [place] [facility] [place] [address] PCP - General Family Practice 06/06/10
--- OUTSIDE RECORDS SUMMARY | 2025-05-08 19:22 | XMS_ITS | Encounter Summary ---
Author Organization [facility] Address [address] [place] [address] Care Team Providers Care Coil Winder Strap Name Role Phone Khloe Rodriguez DO Primary Care Provider +- [phone] Encounter Details Date Type Department Care Team (Latest Contact Info) Description 2000 Outpatient Historical [facility] Medicine [address] [phone] Ce Bro MD [address] [place] [phone] Routine child health exam (Primary Dx) Social History Tobacco Use Types Packs/Day Years Used Date Smoking Tobacco: Never Assessed Comments Unknown Sex and Gender Information Value Date Recorded Sex Assigned at Not on file 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
--- OUTSIDE RECORDS SUMMARY | 2025-05-08 19:22 | XMS_ITS | Encounter Summary ---
Author Organization [facility] Address [address] [place] [address] Care Team Providers Care Counsellors Name Role Phone Khloe Rodriguez DO Primary Care Provider +1- [phone] Encounter Details Date Type Department Care Team (Latest Contact Info) Description 05/08/2005 Outpatient Historical [facility] [address] [place] [address] Zbigniew Rose MD [address] [place] [address] URIN TRACT INFECTION NOS (Primary Dx) Social History Tobacco Use Types Packs/Day Years Used Date Smoking Tobacco: Never Assessed Comments Unknown Sex and Gender Information Value Date Recorded Sex Assigned at Not on file 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
--- OUTSIDE RECORDS SUMMARY | 2025-05-08 19:22 | XMS_ITS | Encounter Summary ---
Author Organization [facility] Address [address] 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
--- OUTSIDE RECORDS SUMMARY | 2025-05-08 19:22 | XMS_ITS | Clinical Summary ---
Author Organization [email or web address] Address [address] [facility] Attn: [place] [address] Care Team Providers Care Residential Supervisor Name Role Phone Jennifer, Khloe L DO Primary Care Provider +1- [phone] Allergies Active Allergy Reactions Criticality Noted Date Comments Alpha-Gal (Defwzxydf-Qsmko-6,3-Galactose) Rash Low 12/01/2024 Medications albuterol sulfate 90 mcg/Actuation inhalerIndicatio ns:Mild intermittent asthma without complication Take 2 Puffs by inhalation every 6 hours as needed for Shortness of Breath. 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 2 Each 3 09/06/19 25 Active Additional Information Patient not taking.Reported on 01/31/2025 mupirocin (BACTROBAN) 2 % OintmentIndicati ons:Insect bite of abdominal wall, initial encounter Apply to affected area daily. 30 Gram 2 12/02/19 25 Active Additional Information Patient not taking.Reported on 01/31/2025 SUMAtriptan (Imitrex) 50 mg tabletIndication s:Chronic migraine without aura without status migrainosus, not intractable Take 1 Tablet (50 mg) by mouth every 2 hours as needed for Headaches. may repeat in 2 hours; max dose 200mg in 24 hours 9 Tablet 3 12/02/19 25 Active methocarbamoL (ROBAXIN) 500 mg tabletIndication s:Muscle spasm of back Take 1 Tablet (500 mg) by mouth 3 times daily as needed for Spasm. 90 Tablet 12/02/19 25 Active hydrOXYzine HCL (ATARAX) 10 mg tabletIndication s:Insect bite of abdominal wall, initial encounter,Allerg y to galactose-alpha- 1,3-galactose Take 1 Tablet (10 mg) by mouth 3 times daily as needed for Itching. 90 Tablet 12/02/19 25 Active traZODone (DESYREL) 50 mg tabletIndication s:Primary insomnia Take 1 Tablet (50 mg) by mouth daily at bedtime. 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,3-galactose 025 Primary insomnia 12/01/2024 Asthma, mild intermittent 09/26/2009 Resolved Problems Problem Noted Date Diagnosed Date Resolved Date Alpha-gal syndrome 12/01/2024 Encounter for supervision of normal first in third trimester 02/15/2020 12/01/2024 Encounters Date Type Department Care Team Description 03/22/2025 External Device Data ST[facility] ABSTRACTION Provider, Abstract 03/08/2025 External Device Data [facility] ABSTRACTION Provider, Abstract 03/08/2025 External Device Data [facility] ABSTRACTION Provider, Abstract 02/23/2025 External Device Data [facility] ABSTRACTION Provider, Abstract 02/22/2025 External Device Data [facility] ABSTRACTION Provider, Abstract 02/21/2025 Orders Only [facility] [place] [address] [place] [address] Kassandra Sherman, CAROLE Breast tenderness in female; 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 from Last 3 Months Immunizations Immunization Administration Dates Next Due (ADACEL/BOOSTRIX)(10 YR UP) TDAP VACCINE, 0.5ML, IM 05/16/2022 (INFANRIX)(6 WKS-6 YRS) DIPT HERIA, TETANUS TOXOIDS, [...] 09/27/2002, 09/27/2002,01/08/2001,11/10 HPV Vaccine 3 Dose IM [facility] 09/29/2015,04/12/2014, 02/04/2014 INFLUENZA VACCINE TRIVALENT SPLIT VIRUS, (6 MOS UP), 0.5ML (PF), IM 04/07/2024 Influenza Vaccine Quad Split 3+ Yrs IM [facility] 05/10/2016,06/10/2014 Meningococcal A Conjugate Va ccine IM [facility] 02/04/2014 Meningococcal A Conjugate Vaccine IM 03/03/2018 Tdap Vaccine > 7 Yo IM [facility] 02/04/2014 Family History Relation Name Status Comments Father Alive Mother Alive Social History Tobacco Use Types Packs/Day Years Used Date Smoking Tobacco: Never Passive Smoke Exposure: Never Smokeless Tobacco: Never Tobacco Cessation:Counseling Given: No Alcohol Use Standard Drinks/Week Comments Not Currently 0 (1 standard drink = 0.6 oz pur e alcohol) Comments No Sex and Gender Information Value Date Recorded Sex Assigned at Not on file Legal Sex Female 1:07 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 Gender Identity Not on file Sexual Orientation Not on file Last Filed Vital Signs Vital Sign Reading Time Taken Comments Blood Pressure 118/62 01/31/2025 1:47 PM CDT Pulse 90 01/31/2025 1:47 PM CDT Temperature 36.2 C (97.2 F) 01/31/2025 1:47 PM CDT Respiratory Rate 18 01/31/2025 1:47 PM CDT Oxygen Saturation 96% 01/31/2025 1:47 PM CDT Inhaled Oxygen Concentration - - Weight 66.4 kg (146 lb 6.4 oz) 01/31/2025 1:47 P M CDT Height 167.6 cm (5' 6 ) 01/31/2025 1:47 PM CDT Body Mass Index 23.63 01/31/2025 1:47 PM CDT Plan of Treatment Health Maintenance Due Date Last Done Comments HEPATITIS B VACCINES (1 of 3 - 19+ 3-dose series) 2019 Preventative Visit-Managed Medicaid 2019 CERVICAL CANCER SCREENING 2021 HPV/Cotest (21-29) 2021 PAP SMEAR 2021 INFLUENZA VACCINE (#1) 2025 , 05/10/2016, 06/10/2014 DTAP/TDAP/TD VACCINES (7 - T d or Tdap) 05/16/2032 05/16/2022, 02/04/2014, 02/11/2004, Additional history exists HPV VACCINES Completed 09/29/2015, 03/22, 02/04/2014 CHLAMYDIA SCREENING (ANNUAL) 11-24 YEARS Discontinued 11/15/2019, 05/27/2018, 09/29/2015 Procedures Procedure Name Priority Date/Time Associated Diagnosis Comments US BREAST BILAT COMPLETE Routine 02/17/2025 Breast tenderness in female 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 GC/CHLAMYDIA, GENITAL Routine 11/15/2019 from Last 3 Months or Most Recently Relevant to Health Maintenance Results * US BREAST BILAT COMPLETE (02/17/2025) Anatomical Region Laterality Modality Breast Bilateral Ultrasound us Kassandra Sherman INDUSTRIAL ANALYST US ORDERABLES Final Resu lt * GC/CHLAMYDIA, GENITAL (11/15/2019) ABSTRACTED CHLAMYDIA DNA AMP negative [facility] ABSTRACT[facility] GC DNA AMPLIFICATION negative [facility] Genital SWAB OF ENDOCERVIX / Unknown 11/15/2019 Narrative [facility] - 11/15/2019 This external order was created through the Results Console. us Historical Provider MICRO - GEN ORDERABLES COM F inal Result [facility] CLIA# [id number] [address] [place] [address] from Last 3 Months or Most Recently Relevant to Health Maintenance Insurance [employer] MEDICA[employer] RX INFOCROSSING Medicaid Care Teams Residential Supervisor Relationship Specialty Start Date End Date Khloe Rodriguez DO [address] [place] [phone] PCP - General Family Practice 06/06/10
--- OUTSIDE RECORDS SUMMARY | 2025-05-08 19:22 | XMS_ITS | Encounter Summary ---
Author Organization [facility] Address [address] [place] [address] Care Team Providers Care Account Development Representative Name Role Phone Khloe Rodriguez DO Primary Care Provider +1- [phone] Encounter Details Date Type Department Care Team (Latest Contact Info) Description 07/18/2004 Outpatient Historical [facility] [place] [address] [place] [address] Zbigniew Rose MD [address] [place] [phone] BRONCHITIS NOS (Primary Dx) Social History Tobacco Use Types Packs/Day Years Used Date Smoking Tobacco: Never Assessed Comments Unknown Sex and Gender Information Value Date Recorded Sex Assigned at Not on file 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
--- OUTSIDE RECORDS SUMMARY | 2025-05-08 19:22 | XMS_ITS | Encounter Summary ---
Author Organization [facility] Address [address] [place] [address] Care Team Providers Care Vice President Supply Chain Name Role Phone Khloe Rodriguez DO Primary Care Provider +- [phone] Encounter Details Date Type Department Care Team (Late st Contact Info) Description 09/25/2004 Outpatient Historical [facility] [place] [address] [place] [address] Social History Tobacco Use Types Packs/Day Years Used Date Smoking Tobacco: Never Assessed Comments Unknown Sex and Gender Information Value Date Recorded Sex Assigned at Not on file Legal Sex Female 4:03 AM RN GASTROENTEROLOGY Gender Identity Not on file Sexual Orientation Not on file documented as of this encounter Plan of Treatment Not on file documented as of this encounter Visit Diagnoses Not on filedocumented in this encounter Care Teams Vice President Supply Chain Relationship Specialty Start Date End Date Khloe Rodriguez DO [address] [place] [address] PCP - General Family Practice 06/06/10 documented as of this encounter
--- OUTSIDE RECORDS SUMMARY | 2025-05-08 19:22 | XMS_ITS | Encounter Summary ---
Author Organization [facility] Address [address] [place] [address] Care Team Providers Care Supervisor Tank House Name Role Phone Khloe Rodriguez DO Primary Care Provider +1- [phone] Encounter Details Date Type Department Care Team (Latest Contact Info) Description 05/22/2005 Outpatient Historical [facility] [place] [address] [place] [address] Zbigniew Rose MD [address] [place] [address] ABDOMINAL PAIN UNSPEC SITE (Primary Dx) Social History Tobacco Use Types Packs/Day Years Used Date Smoking Tobacco: Never Assessed Comments Unknown Sex and Gender Information Value Date Recorded Sex Assigned at Not on file 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
--- OUTSIDE RECORDS SUMMARY | 2025-05-08 19:23 | XMS_ITS | Encounter Summary ---
Author Organization [facility] Address [address] [place] [address] Care Team Providers Care Cell Room Supervisor Name Role Phone Khloe Rodriguez DO Primary Care Provider +1- [phone] Encounter Details Date Type Department Care Team (Latest Contact Info) Description 01/16/2004 Outpatient Historical 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
--- OUTSIDE RECORDS SUMMARY | 2025-05-08 19:23 | XMS_ITS | Encounter Summary ---
Author Organization [facility] Address [address] [place] [address] Care Team Providers Care Retirement Assistant Name Role Phone Khloe Rodriguez DO Primary Care Provider +1- [phone] Encounter Details Date Type Department Care Team (Latest Contact Info) Description 05/28/2004 Outpatient Historical [facility] [place] [address] [place] [address] Zbigniew Rose MD [address] [place] [address] UNSPECIFIED VIRAL INFECTION (Primary Dx) Social History Tobacco Use Types Packs/Day Years Used Date Smoking Tobacco: Never Assessed Comments Unknown Sex and Gender Information Value Date Recorded Sex Assigned at Not on file Legal Sex Female 4:03 AM PIZZA CHEF Gender Identity Not on file Sexual Orientation Not on file documented as of this encounter Plan of Treatment Not on file documented as of this encounter Visit Diagnoses Diagnosis Unspecified viral infection, in conditions classified elsewhere and of unspecified site- Primary documented in this encounter Care Teams Retirement Assistant Relationship Specialty Start Date End Date Khloe Rodriguez DO [address] [place] [address] PCP - General Family Practice 06/06/10 documented as of this encounter
--- OUTSIDE RECORDS SUMMARY | 2025-05-08 19:23 | XMS_ITS | Encounter Summary ---
Author Organization [facility] Address [address] [place] [address] Care Team Providers Care Manager Business Planning Name Role Phone Khloe Rodriguez DO Primary Care Provider +1- [phone] Encounter Details Date Type Department Care Team (Latest Contact Info) Description 04/23/2004 Outpatient Historical [facility] [place] [address] [place] [address] Zbigniew Rose MD [address] [place] [address] UNSPECIFIED VIRAL INFECTION (Primary Dx) Social History Tobacco Use Types Packs/Day Years Used Date Smoking Tobacco: Never Assessed Comments Unknown Sex and Gender Information Value Date Recorded Sex Assigned at Not on file Legal Sex Female 4:03 AM MANAGER BUSINESS PLANNING Gender Identity Not on file Sexual Orientation Not on file documented as of this encounter Plan of Treatment Not on file documented as of this encounter Visit Diagnoses Diagnosis Unspecified viral infection, in conditions classified elsewhere and of unspecified site- Primary documented in this encounter Care Teams Manager Business Planning Relationship Specialty Start Date End Date Khloe Rodriguez DO [address] [place] [address] PCP - General Family Practice 06/06/10 documented as of this encounter
--- OUTSIDE RECORDS SUMMARY | 2025-05-08 19:23 | XMS_ITS | Encounter Summary ---
Author Organization [facility] Address [address] [place] [address] Care Team Providers Care Plate Former Name Role Phone Khloe Rodriguez DO Primary Care Provider +1- [phone] Encounter Details Date Type Department Care Team (Latest Contact Info) Description 06/21/2004 Outpatient Historical [facility] [address] [place] [address] Zbigniew Rose MD [address] [place] [address] UNSPECIFIED VIRAL INFECTION (Primary Dx) Social History Tobacco Use Types Packs/Day Years Used Date Smoking Tobacco: Never Assessed Comments Unknown Sex and Gender Information Value Date Recorded Sex Assigned at Not on file 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
--- OUTSIDE RECORDS SUMMARY | 2025-05-08 19:23 | XMS_ITS | Encounter Summary ---
Author Organization [facility] Address [address] [place] [address] Care Team Providers Care Machine Bander And Cellophaner Helper Name Role Phone Khloe Rodriguez DO Primary Care Provider [phone]- [phone] Encounter Details Date Type Department Care Team (Latest Contact Info) Description 04/05/2004 Outpatient Historical [facility] [address] [place] [address] Zbigniew Rose MD [address] [place] [phone] CELLULITIS NOS (Primary Dx) Social History Tobacco Use Types Packs/Day Years Used Date Smoking Tobacco: Never Assessed Comments Unknown Sex and Gender Information Value Date Recorded Sex Assigned at Not on file Legal Sex Female 4:03 AM HAT AND CAP 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
--- OUTSIDE RECORDS SUMMARY | 2025-05-08 19:23 | XMS_ITS | Encounter Summary ---
Author Organization [facility] Address [address] [place] [address] Care Team Providers Care Kindergarten Aide Name Role Phone Khloe Rodriguez DO Primary Care Provider [phone]- [phone] Encounter Details Date Type Department Care Team (Latest Contact Info) Description 12/10/2003 Outpatient Historical [facility] [place] [address] [place] [address] Zbigniew Rose MD [address] [place] [phone] BRONCHITIS NOS (Primary Dx) Social History Tobacco Use Types Packs/Day Years Used Date Smoking Tobacco: Never Assessed Comments Unknown Sex and Gender Information Value Date Recorded Sex Assigned at Not on file Legal Sex Female 4:03 AM RN ADVANCED Gender Identity Not on file Sexual Orientation Not on file documented as of this encounter Plan of Treatment Not on file documented as of this encounter Visit Diagnoses Diagnosis Bronchitis, not specified as acute or chronic- Primary documented in this encounter Care Teams Kindergarten Aide Relationship Specialty Start Date End Date Khloe Rodrgiuez DO [address] [place] [address] PCP - General Family Practice 06/06/10 documented as of this encounter
--- OUTSIDE RECORDS SUMMARY | 2025-05-08 19:23 | XMS_ITS | Encounter Summary ---
Author Organization [facility] Address [address] [place] [address] Care Team Providers Care Evidence Custodian Name Role Phone Khloe Rodriguez DO Primary Care Provider +1- [phone] Encounter Details Date Type Department Care Team (Latest Contact Info) Description 07/03/2004 Outpatient Historical [facility] [place] [address] [place] [address] Zbigniew Rose MD [address] [place] [phone] COUGH (Primary Dx) Social History Tobacco Use Types Packs/Day Years Used Date Smoking Tobacco: Never Assessed Comments Unknown Sex and Gender Information Value Date Recorded Sex Assigned at Not on file 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 [place] [address] PCP - General Family Practice 06/06/10 documented as of this encounter
--- OUTSIDE RECORDS SUMMARY | 2025-05-08 19:23 | XMS_ITS | Encounter Summary ---
Author Organization [facility] Address [address] [place] [address] Care Team Providers Care Specialist Managers Name Role Phone Khloe Rodriguez DO Primary Care Provider [phone]- [phone] Encounter Details Date Type Department Care Team (Latest Contact Info) Description 04/16/2004 Outpatient Historical [facility] [place] [address] [place] [address] Zbigniew Rose MD [address] [place] [phone] HEALTH EXAM-GROUP SURVEY (Primary Dx) Social History Tobacco Use Types Packs/Day Years Used Date Smoking Tobacco: Never Assessed Comments Unknown Sex and Gender Information Value Date Recorded Sex Assigned at Not on file 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
--- OUTSIDE RECORDS SUMMARY | 2025-05-08 19:23 | XMS_ITS | Encounter Summary ---
Author Organization [facility] Address [address] [place] [address] Care Team Providers Care Wood Heel Fitter Machine Name Role Phone Khloe Rodriguez DO Primary Care Provider +1- [phone] Encounter Details Date Type Department Care Team (Latest Contact Info) Description 05/11/2004 Outpatient Historical [facility] [place] [address] [place] [address] Zbigniew Rose MD [address] [place] [phone] STREPTOCOCCUS UNSPECIFIED (Primary Dx) Social History Tobacco Use Types Packs/Day Years Used Date Smoking Tobacco: Never Assessed Comments Unknown Sex and Gender Information Value Date Recorded Sex Assigned at Not on file 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
--- OUTSIDE RECORDS SUMMARY | 2025-05-08 19:23 | XMS_ITS | Encounter Summary ---
Author Organization [facility] Address [address] [place] [address] Care Team Providers Care Claims Administrator Name Role Phone Khloe Rodriguez DO Primary Care Provider +1- [phone] Encounter Details Date Type Department Care Team (Latest Contact Info) Description 06/13/2004 Outpatient Historical [facility] [place] [address] [place] [address] Zbigniew Rose MD [address] [place] [phone] BRONCHITIS NOS (Primary Dx) Social History Tobacco Use Types Packs/Day Years Used Date Smoking Tobacco: Never Assessed Comments Unknown Sex and Gender Information Value Date Recorded Sex Assigned at Not on file 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
[2025-05-08 19:37] VITALS: BP 130/72; PULSE 92; RESP 14; TEMP 36.7; O2SAT 100
--- NOTE | 2025-05-08 19:51 | XRR_ITS ---
PROCEDURE INFORMATION: Exam: XR Right Foot Exam date and time: 05/08/2025 7:58 PM Age: 24 years old Clinical indication: Injury or trauma; Other: Injured while running; Blunt trauma; Foot; Right; Additional info: Injury x2 days TECHNIQUE: Imaging protocol: Radiologic exam of the right foot. Views: 3 or more views. COMPARISON: No relevant prior studies available. FINDINGS: Bones/joints: Normal. Soft tissues: Normal. XR/XR foot RT min 3V* [id number] IMPRESSION: No acute findings.
--- NOTE | 2025-05-08 19:57 | ED_ITS ---
HPI - Extremity Problem General: Chief complaint: Extremity Injury, Lower Stated complaint: RT foot pain Time Seen by Provider: 05/08/25 19:45 Source: patient Mode of arrival: ambulatory Limitations: no limitations History of Present Illness: Patient is a 24-year-old female who presents to the emergency department complaining of right foot pain since Friday. States that she was running around the house chasing her dog when she twisted her foot and has pain diffusely. Has been ambulatory though with pain. No pain in her ankle. Has not taken anything medication milligan. No previous injuries to the foot. No bruising or swelling. No distal sensory changes. MD Complaint: extremity pain Onset (ago): day(s) (2) Location: right and lower extremity (foot) Associated symptoms: Deny chest pain, fever(s) or rash Related Data Previous Rx's ?Medication ?Instructions ?Recorded ibuprofen 800 mg tablet 800 mg PO Q8H PRN pain #60 t abs 01/06/23 erythromycin 5 mg/gram (0.5 %) eye 0.5 inch ophthalmic (eye) QID 7 02/06/24 ointment (3.5 gram tube) days #3.5 grams Allergies Allergy/AdvReac Type Severity Reaction Status Date / Time No Known Allergies Allergy Verified 05/08/25 19:41 Review of Systems General: Reports: 10 or more systems reviewed and unremarkable except in HPI and below Const: Denies: fever(s) or chills Card: Denies: chest pain Resp: Denies: dyspnea or productive cough GI: Denies: abdominal pain, nausea, vomiting or diarrhea : Denies: flank pain Musc: Reports: extremity pain (rt foot); Denies: neck pain, back pain, extremity swelling, joint pain, joint swelling, joint redness, joint warmth, limited range of motion or muscle weakness Skin/Breast: Denies: rash Neuro: Denies: headache(s), numbness in extremities or weakness in extremities PFSH ED PFSH: Medical History No pertinent past medical history Denies diabetes, seizures, hypertension, DVT/PE PMD: None History of asthma Diagnosed as a child. Controlled with as needed albuterol inhaler. Denies any intubations or hospitalizations. Last had symptoms in 2014. Denies any inhaler use since then Surgical History No pertinent past surgical history Family History Unknown No pertinent family history Denies any diabetes, hypertension, hypercholesterolemia, stroke, thyroid, heart disease, uterine, colon, ovarian, or breast cancer Social History Smoking and tobacco/nicotine status: never used tobacco/nicotine Alcohol intake: never Substance/Drug Use: never Physical Exam Const: COMMON NORMALS: no acute distress, patient oriented x3, no limitations, healthy appearing, alert and well nourished HENMT: COMMON NORMALS: normocephalic and atraumatic HEAD & SCALP: normocephalic and atraumatic Neck/C-Spine: COMMON NORMALS: full ROM, supple and no meningeal signs Extremity: NARRATIVE EXTREMITY EXAM: Diffuse tender to palpation of right foot. No bruising or swelling. Range of motion at the ankle with no tenderness to palpation here. Pulses palpable. No coolness or pallor. Antalgic gait. Neuro: COMMON NORMALS: patient oriented x3, moves all extremities, no focal motor deficits and no sensory deficits noted SENSORIUM/ORIENTATION: Yes alert MENINGEAL SIGNS: Yes no meningeal signs Skin: COMMON NORMALS: no rashes or lesions noted GENERAL SKIN EXAM: no rashes or lesions noted Course Vital Signs: Vital signs: Vital Signs Temperature 98.1 F 05/08/25 19:37 Pulse Rate 67 05/08/25 20:20 Respiratory Rate 14 05/08/25 20:20 Blood Pressure 117/76 05/08/25 20:20 Pulse Oximetry 100 05/08/25 20:20 Oxygen Delivery Me thod Room Air 05/08/25 19:37 MDM - Extremity (Nontraumatic) Medical Decision Making This patient presented with right foot pain after rolling it on Friday, no significant signs of trauma on exam. Has been ambulatory though with pain. Physical exam unremarkable. Foot x-ray showing no abnormalities. Suspect sprain she will treat conservatively at home. Requesting compression and crutches for ambulation out of the ED today. Lab Data Radiology Impressions Foot X-Ray 05/08/25 19:51 IMPRESSION: No acute findings. All radiology interpretation(s) finalized by discharge Discharge Plan Discharge Patient Disposition: Home Clinical Impression: Sprain of foot, right Qualifiers: Encounter type: initial encounter Qualified Code(s): S93.601A - Unspecified sprain of right foot, initial encounter Condition: Stable Prescriptions: No Action ibuprofen 800 mg tablet 800 mg PO Q8H PRN (Reason: pain) Qty: 60 0RF erythromycin 5 mg/gram (0.5 %) ointment 0.5 inch ophthalmic (eye) QID 7 Days Qty: 3.5 0RF Discharge Orders: Discharge ED (Routine); Ordered 05/08/25 Ordered By: Galindo Montoya Patient Instructions: Patient Portal & A[facility] Instructions Activity Restrictions/Additional Instructions: Foot Sprain Discharge Instructions You have a sprain of your right foot. This means the ligaments (bands of tissue that connect bones) have been stretched or torn, but your X-ray shows no broken bones. What to do at home: - Rest: Avoid activities that cause pain or swelling. You may walk as comfort allows, but do not push through pain. - Ice: Apply an ice pack (wrapped in a towel) to your foot for 15-20 minutes every 2-3 hours for the first 3-7 days to help with pain and swelling. - Compression: Use an elastic bandage or ankle brace to help reduce swelling and support your foot. Make sure it is snug but not too tight. - Elevation: Keep your foot raised above the level of your heart as much as possible, especially in the first few days. Pain control: - You may use [id number] pain medicine like ibuprofen or acetaminophen as directed to help with pain and swelling. Activity and exercise: - Start gentle movement and stretching exercises as soon as you can tolerate them. Early movement helps you heal faster and prevents stiffness. - As your pain improves, gradually return to normal activities. Avoid running, jumping, or sports until you can walk without pain. - Balance and strengthening exercises can help prevent future sprains. Ask your doctor or physical therapist for specific exercises. Protection: - Use a brace or support if recommended, especially when returning to sports or activities that put your foot at risk. When to seek help: - If you have increasing pain, swelling, numbness, or cannot bear weight on your foot, contact your doctor. - If you notice redness, warmth, or drainage from your foot, or if you develop a fever, seek medical attention. Follow-up: - Most sprains heal within 1-3 weeks, but recovery time can vary. If you are not improving after 7-10 days, or if you have questions about your recovery, schedule a follow-up appointment. Prevention: - Once healed, regular stretching, strengthening, and balance exercises can help prevent future injuries. Take care and follow these instructions to help your foot heal well. Print Language: Cameroonian Coding Level of Care Code ED Registered Occupational Therapist for Nando Lovell
[2025-05-08 20:20] VITALS: BP 117/76; PULSE 67; RESP 14; O2SAT 100
== END 2025-05-08 20:33 | disposition home or self-care (01) ==
PROVIDERS: Emergency Provider Physician Assistant
DX: S93.601A Unspecified sprain of right foot, initial encounter (principal); X50.1XXA Overexertion from prolonged static or awkward postures, initial encounter
CPT/HCPCS: 73630; 99283